=== PATIENT | male | born 1935 | race Hispanic/Latino ===

== ENCOUNTER 2016-11-28 13:05 | Outpatient (CLI) | payer MEDICARE ==
--- NOTE | 2016-11-29 12:19 | Ultrasound Report ---
Renal ultrasound: Chronic renal insufficiency. The right renal length is 7.3 cm and the left renal length is 8.4 cm. Both kidneys are markedly echogenic with lobulated contours. There is a 1.5 cm circumscribed lucency in the lateral mid right kidney. No other focal lesions in either kidney. Suspect small upper pole left renal stone. No hydronephrosis in either kidney. Imaging of the urinary bladder is unremarkable. Impression: 1. Somewhat small echogenic kidneys consistent with medical renal disease. 2. Right renal cyst. 3. Probable nonobstructing superior pole left renal calculus.
== END 2016-11-28 13:06 | disposition home or self-care (01) ==
LOC: US 13:05
PROVIDERS: ATTEND Internal Medicine Nephrology
DX: I12.9 Hypertensive chronic kidney disease with stage 1 through stage 4 chronic kidney disease, or unspecified chronic kidney disease (principal); N18.3 Chronic kidney disease, stage 3 (moderate); N28.1 Cyst of kidney, acquired
CPT/HCPCS: 76770